=== PATIENT | female | born 1980 | race Caucasian/White ===

== ENCOUNTER 2022-09-13 11:13 | Emergency (ER) | payer OTHER, SELFPAY ==
[2022-09-13 11:22] VITALS: BP 145/85; PULSE 103; RESP 20; TEMP 37.7; O2SAT 96
--- NOTE | 2022-09-13 11:41 | ED.URI ---
HPI - URI/Sore Throat General Chief Complaint: Upper Respiratory Infection Stated Complaint: sob/wheezing Time Seen by Provider: 09/13/22 11:42 Source: patient Mode of arrival: ambulatory Limitations: no limitations History of Present Illness HPI Narrative: 42-year-old female presents with complaint of cough, chest tightness, shortness of breath with exertion, wheezing for the past several days. Afebrile. Reports history of bronchitis. Thinks that symptoms are related to allergies. Is taking daily allergy medication. Denies history of asthma. Is out of albuterol inhaler. Patient is visiting from out of town. She is speaking in full sentences. All systems reviewed and negative except as noted above. Related Data Allergies Allergy/AdvReac Type Severity Reaction Status Date / Time No Known Allergies Allergy Mild Verified 09/13/22 11:21 Review of Systems Review of Systems: CONSTITUTIONAL: Denies fever, chills, or sweats. EYES: Denies visual changes, redness, or discharge. ENT: Denies rhinorrhea, congestion, sore throat, or otalgia. CARDIOVASCULAR: Denies chest pain, palpitations, or edema. RESPIRATORY: Reports cough, chest tightness, wheezing dyspnea on exertion. GASTROINTESTINAL: Denies abdominal pain, nausea, vomiting, or diarrhea. GENITOURINARY: Denies dysuria or hematuria. SKIN: Denies rash or itching. MUSCULOSKELETAL: Denies back pain, joint pain, or myalgia. NEUROLOGIC: Denies headache, numbness, or weakness. PSYCHIATRIC: Denies anxiety or depression. All other systems reviewed are negative, except as documented in HPI. PMFSH Comments At time of signature, agree with nursing past medical, surgical, social and family history. There is no relevant family history pertinent to the presenting complaint. Exam Narrative: GENERAL: This is a well-nourished, well-developed patient, in no apparent distress. HEAD: normocephalic, atraumatic. EYES: PERRL. Sclera clear/white. Vision is grossly intact. EARS: External ears normal, auditory canals clear and without drainage, TMs normal without perforation. Hearing grossly intact. NOSE: External nose normal with no obvious nasal discharge, nares without redness, no rhinorrhea. THROAT: Mucous membranes moist, posterior pharynx clear. NECK: Neck supple, non-tender without lymphadenopathy, masses or thyromegaly. CARDIOVASCULAR: Regular rate and rhythm without murmurs, gallops, or rubs. RESPIRATORY: wheezing, coarse lung sounds throughout all lung [place]. SKIN: warm, Dry, intact with no suspicious lesions or rash, good texture and turgor. NEURO: awake, alert, and oriented to person, place and time. There were no obvious focal neurologic abnormalities. EXTREMITIES: No joint tenderness, effusion, or edema noted. Course Course Level of Care: Express Care Visit Reevaluation(s) Reevaluation #1: wheezing improved after DuoNeb her Vital Signs Vital signs: Vital Signs Temperature 37.7 C H 09/13/22 11:22 Pulse Rate 103 H 09/13/22 11:22 Respiratory Rate 20 09/13/22 11:22 Blood Pressure 145/85 H 09/13/22 11:22 Pulse Oximetry 96 09/13/22 11:22 Oxygen Delivery Room Air 09/13/22 11:22 Temperature 37.7 C H 09/13/22 11:22 Pulse Rate 114 H 09/13/22 12:32 Respiratory Rate 20 09/13/22 12:32 Blood Pressure 145/85 H 09/13/22 11:22 Pulse Oximetry 96 09/13/22 12:32 Oxygen Delivery Room Air 09/13/22 11:22 reviewed MDM - URI/Sore Throat MDM Narrative Medical decision making narrative: Patient is aware of diagnosis, understands and agrees to treatment plan. Anticipatory guidance given. Patient agrees to follow-up as directed and is aware of reasons to seek care at the emergency department. Portions of this record may have been created with voice recognition software patient reports breathing improved after DuoNeb. Will prescribe prednisone and albuterol to treat bronchitis. Recommend follow-up with primary care physician in 1 week. Analia
[2022-09-13] MEDS: ALBUTEROL SULFATE NEB 2.5 MG/3 ML INH INHALATION (11:59)
[2022-09-13] MEDS: IPRATROPIUM BR 0.02% INH SOLN 0.5 MG/2.5 ML VIAL INHALATION (11:59)
--- NOTE | 2022-09-13 12:04 | PC.NURSE ---
was unable to scan prednisone.
[2022-09-13 12:32] VITALS: PULSE 114; RESP 20; O2SAT 96
== END 2022-09-13 12:51 | disposition home or self-care (01) ==
PROVIDERS: Emergency Provider Nurse Practitioner Family
DX: J20.9 Acute bronchitis, unspecified (principal)
CPT/HCPCS: 99213; G0463